=== PATIENT | female | born 1970 | race African-American/Black ===

== ENCOUNTER 2017-04-05 10:18 | Inpatient (IN) | payer OTHER ==
[~2017-04-05] VITALS: Ht 167.6 cm; Wt 77.1 kg
[~2017-04-05 10:18] MED LIST: HCTZ; MOTRIN; NORCO; ZOFRAN
[2017-04-05] MEDS ORDERED: ASPIRIN 81MG TABLET PO STA (11:07)
[2017-04-05] MEDS ORDERED: LORAZEPAM 1MG TABLET PO ONE ×2 (11:15→16:15)
[2017-04-05 11:54] LABS: CLARITY URINE CLOUDY (CLEAR); COLOR URINE YELLOW (YELLOW)
[2017-04-05 11:55] LABS: GLUCOSE URINE NEGATIVE (NEGATIVE); KETONES URINE NEGATIVE (NEGATIVE); NITRITE URINE NEGATIVE (NEGATIVE); OCCULT BLOOD URINE NEGATIVE (NEGATIVE); PROTEIN URINE NEGATIVE (NEGATIVE); SPECIFIC GRAVITY URINE 1.028 (1.005-1.030); UROBILINOGEN URINE 0.2 E.U./dL (0.2-1.0)
[2017-04-05 11:56] LABS: LEUKOCYTE ESTERASE URINE NEGATIVE (NEGATIVE)
[2017-04-05] MEDS ORDERED: CLONIDINE 0.2MG TABLET PO ONE (12:00)
[2017-04-05] MEDS ORDERED: KETOROLAC 30MG/ML VIAL IV ONE (12:30)
[2017-04-05 12:40] LABS: BASOPHILS % 1.1 % (0.0-2.0); EOSINOPHILS % 1.3 % (0.0-5.0); HEMATOCRIT. 40.1 % (36.0-48.0); HEMOGLOBIN. 13.8 g/dL (12.0-16.0); LYMPHOCYTES % 31.7 % (20.0-50.0); MEAN CORPUSCULAR HEMOGLOBIN 38.3 pg (28.0-32.0); MEAN CORPUSCULAR VOLUME 111.4 fL (81.0-99.0); MEAN PLATELET VOLUME 7.1 fl (7.4-10.4); MONOCYTES % 5.8 % (2.0-8.0); NEUTROPHILS % 60.1 % (40.0-76.0); PLATELET 337 x1000/uL (130-400)
[2017-04-05] MEDS ORDERED: CEFTRIAXONE 1 G PREMIX 50 ML IV ONE (12:45)
[2017-04-05 12:49] LABS: D-DIMER 0.2 mg/L FEU (<0.50); PARTIAL THROMBOPLASTIN TIME 28.2 sec (23.4-31.0); PROTHROMBIN TIME 10.4 sec (9.4-11.6)
[2017-04-05 12:55] LABS: CARBON DIOXIDE 22 mEq/L (21-32); CHLORIDE 106 mEq/L (98-107); CREATINE KINASE 172 IU/L (26-192); TROPONIN I 0.09 ng/mL (0.00-0.04)
[2017-04-05] MEDS ORDERED: LORAZEPAM 2MG/ML CPJ IV ONE (13:00)
[2017-04-05 13:02] LABS: PLATELET ESTIMATE NORMAL
[2017-04-05 13:04] LABS: HCG SCREEN NEGATIVE
[2017-04-05] MEDS ORDERED: AZITHROMYCIN 500 MG TABLET PO ONE (16:15)
[2017-04-05] MEDS ORDERED: DIPHENHYDRAMINE 50MG/ML VIAL IV PRN (16:45)
[2017-04-05] MEDS ORDERED: DOCUSATE SODIUM 100MG CAPSULE PO PRN (16:45)
[2017-04-05] MEDS ORDERED: NA PHOS,M-B/NA PHOS,DI-BA ENEMA 118ML PR PRN (16:45)
[2017-04-05] MEDS ORDERED: ACETAMINOPHEN 650MG/20.3ML UDC GT PRN (16:45)
[2017-04-05] MEDS ORDERED: HYDROCODONE/ACETAMINOPHEN 10/325MG TABLET PO PRN (16:45)
[2017-04-05] MEDS ORDERED: ACETAMINOPHEN 650MG SUPP PR PRN (16:45)
[2017-04-05] MEDS ORDERED: GUAIFENESIN 200MG/10ML SUGAR FREE UDC PO PRN (16:45)
[2017-04-05] MEDS ORDERED: IPRATROPIUM/ALBUTEROL 0.5-3(2.5)MG/3ML NEB INH PRN (16:45)
[2017-04-05] MEDS: CLONIDINE 0.1MG TABLET PO PRN (16:56)
[2017-04-05 17:03] VITALS: BP 162/110
[2017-04-05] MEDS ORDERED: INFLUENZA VIRUS VACCINE 0.5ML SYR IM ONE (17:45)
[2017-04-05] MEDS ORDERED: HYDR25TA PO (18:49)
[2017-04-05] MEDS ORDERED: ACET-2178 PO (18:49)
[2017-04-05] MEDS ORDERED: HYDR-523 PO (18:49)
[2017-04-05 19:47] LABS: CLARITY URINE CLOUDY (CLEAR); COLOR URINE YELLOW (YELLOW); GLUCOSE URINE NEGATIVE (NEGATIVE); KETONES URINE NEGATIVE (NEGATIVE); LEUKOCYTE ESTERASE URINE 1+ (NEGATIVE); NITRITE URINE NEGATIVE (NEGATIVE); OCCULT BLOOD URINE TRACE (NEGATIVE); PH URINE 6.5 (4.5-8.0); PROTEIN URINE TRACE (NEGATIVE); SPECIFIC GRAVITY URINE 1.022 (1.005-1.030); UROBILINOGEN URINE 0.2 E.U./dL (0.2-1.0)
[2017-04-05 20:00] VITALS: BP 150/102
[2017-04-05 20:03] LABS: *AMPHETAMINES SCREEN URINE NEGATIVE (NEGATIVE); *BARBITURATES SCREEN URINE NEGATIVE (NEGATIVE); *BENZODIAZEPINES SCREEN URINE NEGATIVE (NEGATIVE); *COCAINE SCREEN URINE NEGATIVE (NEGATIVE); METHADONE URINE SCREEN NEGATIVE (NEGATIVE); PHENCYCLIDINE URINE SCREEN NEGATIVE (NEGATIVE)
[2017-04-05 20:04] LABS: CANNABINOID URINE SCREEN PRESUMTIVE POSITIVE (NEGATIVE); OPIATES URINE SCREEN PRESUMTIVE POSITIVE (NEGATIVE)
[2017-04-05] MEDS ORDERED: LORAZEPAM 2MG/ML CPJ IV PRN (20:07)
[2017-04-05] MEDS ORDERED: LORAZEPAM 1MG TABLET PO PRN (22:00)
[2017-04-05] MEDS ORDERED: AMLODIPINE 10MG TABLET PO SCH (22:00)
[2017-04-05] MEDS: SODIUM CHLORIDE 0.9% INJ 3ML FLUSH IVF SCH (22:15)
[2017-04-05] MEDS: KETOROLAC 30MG/ML VIAL IV PRN (22:25)
[2017-04-05 23:13] LABS: CREATINE KINASE MB FRACTION 3.2 ng/mL (0.5-3.6); TROPONIN I 0.1 ng/mL (0.00-0.04)
[2017-04-06] VITALS: BP 150/85
[2017-04-06 04:00] VITALS: BP 180/111
[2017-04-06] MEDS: CLONIDINE 0.1MG TABLET PO PRN ×2 (04:37→13:43)
[2017-04-06] MEDS: KETOROLAC 30MG/ML VIAL IV PRN (04:50)
[2017-04-06] MEDS: SODIUM CHLORIDE 0.9% INJ 3ML FLUSH IVF SCH ×3 (05:05→22:00)
[2017-04-06 07:44] LABS: BASOPHILS % 0.3 % (0.0-2.0); EOSINOPHILS % 1.1 % (0.0-5.0); HEMATOCRIT. 37.6 % (36.0-48.0); HEMOGLOBIN. 12.9 g/dL (12.0-16.0); LYMPHOCYTES % 11.2 % (20.0-50.0); MEAN CORPUSCULAR HEMOGLOBIN 38.2 pg (28.0-32.0); MEAN CORPUSCULAR VOLUME 111.4 fL (81.0-99.0); MEAN PLATELET VOLUME 7.8 fl (7.4-10.4); MONOCYTES % 0.9 % (2.0-8.0); NEUTROPHILS % 86.5 % (40.0-76.0); PLATELET 336 x1000/uL (130-400); RED BLOOD CELL COUNT 3.38 mill/uL (4.2-5.4); RED CELL DISTRIBUTION WIDTH 13.7 % (11.6-14.6)
[2017-04-06 08:00] VITALS: BP 147/95
[2017-04-06 08:20] LABS: CARBON DIOXIDE 21 mEq/L (21-32); CHLORIDE 109 mEq/L (98-107)
[2017-04-06 08:35] LABS: CREATINE KINASE 161 IU/L (26-192); CREATINE KINASE MB FRACTION 2.8 ng/mL (0.5-3.6); HDL CHOLESTEROL 43 mg/dL (40-59); LDL CHOLESTEROL 139 mg/dL (5-100); TROPONIN I 0.08 ng/mL (0.00-0.04)
[2017-04-06] MEDS ORDERED: AMLODIPINE 10MG TABLET PO SCH (09:00)
[2017-04-06] MEDS: METOPROLOL TARTRATE 25MG TABLET PO SCH ×2 (09:44→21:15)
[2017-04-06] MEDS: FUROSEMIDE 40MG/4ML VIAL IV SCH (09:47)
[2017-04-06] MEDS ORDERED: REGADENOSON 0.4 MG/5 ML IV ONE (11:00)
[2017-04-06 12:00] VITALS: BP 172/102
[2017-04-06] MEDS: DILTIAZEM HCL 60MG TABLET PO SCH ×2 (12:35→18:08)
[2017-04-06 16:00] VITALS: BP 135/96
[2017-04-06 20:00] VITALS: BP 156/97
[2017-04-06] MEDS ORDERED: ATORVASTATIN CALCIUM 10MG TABLET PO SCH (21:00)
[2017-04-06] MEDS: ALPRAZOLAM 0.25 MG TABLET PO PRN (21:16)
[2017-04-06] MEDS: ACETAMINOPHEN 325MG TABLET PO PRN (21:16)
[2017-04-07] VITALS: BP 160/86
[2017-04-07] MEDS: DILTIAZEM HCL 60MG TABLET PO SCH ×3 (00:57→12:27)
[2017-04-07 04:00] VITALS: BP 142/89
[2017-04-07 06:43] LABS: BASOPHILS % 0.2 % (0.0-2.0); EOSINOPHILS % 0.6 % (0.0-5.0); HEMATOCRIT. 37.8 % (36.0-48.0); HEMOGLOBIN. 12.9 g/dL (12.0-16.0); MEAN CORPUSCULAR HEMOGLOBIN 37.8 pg (28.0-32.0); MEAN CORPUSCULAR VOLUME 110.8 fL (81.0-99.0); MEAN PLATELET VOLUME 7.8 fl (7.4-10.4); MONOCYTES % 6.4 % (2.0-8.0); NEUTROPHILS % 80.8 % (40.0-76.0); PLATELET 331 x1000/uL (130-400); RED BLOOD CELL COUNT 3.41 mill/uL (4.2-5.4); RED CELL DISTRIBUTION WIDTH 13.8 % (11.6-14.6)
[2017-04-07] MEDS: SODIUM CHLORIDE 0.9% INJ 3ML FLUSH IVF SCH (07:05)
[2017-04-07 07:51] LABS: CARBON DIOXIDE 19 mEq/L (21-32); CHLORIDE 109 mEq/L (98-107)
[2017-04-07 07:53] LABS: TROPONIN I 0.04 ng/mL (0.00-0.04)
[2017-04-07] MEDS ORDERED: REGADENOSON 0.4 MG/5 ML IV ONE (08:36)
[2017-04-07] MEDS: FUROSEMIDE 40MG/4ML VIAL IV SCH (10:01)
[2017-04-07] MEDS: METOPROLOL TARTRATE 25MG TABLET PO SCH (10:01)
[2017-04-07 10:06] VITALS: BP 133/88
[2017-04-07] MEDS: ACETAMINOPHEN 325MG TABLET PO PRN (10:41)
[2017-04-07] MEDS: ALPRAZOLAM 0.25 MG TABLET PO PRN (10:42)
[2017-04-07 12:29] VITALS: BP 139/91
== END 2017-04-07 13:30 | disposition home or self-care (01) | DRG 243 ==
LOC: ER 11:18 → EDBEDREQ 13:30 → EDBEDREQTM 13:30 → 5WST 15:20 → ENRESERV 15:20
PROVIDERS: ADMIT Family Medicine; ATTEND Family Medicine
DX: K21.9 Gastro-esophageal reflux disease without esophagitis (principal); I11.9 Hypertensive heart disease without heart failure; E78.5 Hyperlipidemia, unspecified; F41.9 Anxiety disorder, unspecified; R00.0 Tachycardia, unspecified; Z82.49 Family history of ischemic heart disease and other diseases of the circulatory system; Z79.899 Other long term (current) drug therapy; Z88.8 Allergy status to other drugs, medicaments and biological substances; I16.1 Hypertensive emergency
CPT/HCPCS: 36415; 71010; 74000; 76700; 78452; 80048; 80053; 80061; 80305; 81001; 82550; 82553; 83605; 83690; 83880; 84443; 84484; 84703; 85025; 85379; 85610; 85730; 87040; 90686; 93005; 93017; 99285; A9500; C1893; J0696; J1885; J1940; J2060; J2785

== ENCOUNTER 2017-04-09 07:14 | Emergency (ER) | payer OTHER ==
[~2017-04-09] VITALS: Ht 162.6 cm; Wt 82.0 kg
[~2017-04-09 07:14] MED LIST changes: +ACET-2178 PO; -HCTZ; +HYDR-523 PO; +HYDR25TA PO; -MOTRIN; -NORCO; -ZOFRAN
[2017-04-09] MEDS ORDERED: LABETALOL HCL 20MG/4ML CARPUJECT IV PRN (08:30)
[2017-04-09] MEDS ORDERED: LABETALOL 5MG/ML SYR 20 MG/4 ML SYRINGE IV PRN ×3 (09:00→09:05)
[2017-04-09 14:43] VITALS: BP 161/108
== END 2017-04-09 12:10 | disposition home or self-care (01) ==
LOC: ER 07:46
DX: I10 Essential (primary) hypertension (principal); Z88.5 Allergy status to narcotic agent
CPT/HCPCS: 93005; 96374; 99284; J3490